=== PATIENT | female | born 1965 | race African-American/Black ===

== ENCOUNTER 2020-10-26 09:55 | Emergency (ER) | payer OTHER ==
[2020-10-26 10:07] VITALS: BP 146/88; PULSE 55; TEMP 98.1; BMI 30.6
[2020-10-26] MEDS ORDERED: METHOCARBAMOL 500 MG TABLET PO ONE (10:44)
[2020-10-26] MEDS ORDERED: IBUPROFEN 600 MG TABLET (FP) PO ONE ×2 (10:44→11:32)
[2020-10-26] MEDS ORDERED: METHOCARBAMOL 500 MG TABLET ONE (11:32)
== END 2020-10-26 11:50 | disposition home or self-care (01) ==
LOC: JER 09:55
DX: M25.511 Pain in right shoulder (principal); R51.9 Headache, unspecified
CPT/HCPCS: 99283-25